=== PATIENT | male | born 2000 | race Two or more races ===

== ENCOUNTER 2025-03-12 11:30 | Outpatient (RCR) | payer MEDICAID, SELFPAY ==
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
--- NOTE | 2025-02-25 12:16 | PT.ODAYNRPT ---
PT Outpatient Daily Note OP Daily Note Outpatient Physical Therapy Treatment Date: 02/25/25 Visit Reasons: RT ANKLE FX Subjective: Arrives with crutches and boot Objective: See F/S for therex MT: STM posterior ankle and Achilles x5' Assessment: Decreased WB tolerance of R ankle while using 1 crutch Plan: Continue per POC Length of Time (minutes) of Treatment: 30 Minutes Procedure Charges Therapeutic Exercise 30 minutes: Yes
--- NOTE | 2025-03-03 16:15 | PT.ODAYNRPT ---
PT Outpatient Daily Note OP Daily Note Outpatient Physical Therapy Treatment Date: 03/03/25 Visit Reasons: RT ANKLE FX Subjective: Arrives with cane and no boot Objective: See F/S for therex Assessment: Improved WB tolerance of R ankle without the boot but he relies on hand support for balance Plan: Continue per POC Length of Time (minutes) of Treatment: 30 Minutes Procedure Charges Therapeutic Exercise 30 minutes: Yes
--- NOTE | 2025-03-05 12:02 | PT.ODAYNRPT ---
PT Outpatient Daily Note OP Daily Note Outpatient Physical Therapy Treatment Date: 03/05/25 Visit Reasons: RT ANKLE FX Subjective: Arrives with cane and no boot and says he's walking further Objective: See F/S for therex Assessment: Improved WB tolerance of R ankle without the boot and cane Plan: Continue per POC Length of Time (minutes) of Treatment: 30 Minutes Procedure Charges Therapeutic Exercise 30 minutes: Yes
--- NOTE | 2025-03-10 12:58 | PT.ODAYNRPT ---
PT Outpatient Daily Note OP Daily Note Outpatient Physical Therapy Treatment Date: 03/10/25 Visit Reasons: RT ANKLE FX Subjective: Arrives with cane and reports better ROM of ankle Objective: See F/S for therex Assessment: Improved WB tolerance of R ankle and low pain with heel raises Plan: Continue per POC Length of Time (minutes) of Treatment: 30 Minutes Procedure Charges Therapeutic Exercise 30 minutes: Yes
--- NOTE | 2025-03-12 13:07 | PT.ODAYNRPT ---
PT Outpatient Daily Note OP Daily Note Outpatient Physical Therapy Treatment Date: 03/12/25 Visit Reasons: RT ANKLE FX Subjective: Arrives with single point cane and states he has noticed improvement with Rt ankle ROM Objective: See F/S for therex Assessment: Pt tolerated exercises well with no increase in pain, requiring two breaks with gastroc stretch as he states it feels really tight. Improved WB tolerance with lateral steps. Plan: Continue with POC Length of Time (minutes) of Treatment: 30 Minutes Procedure Charges Therapeutic Exercise 30 minutes: Yes
== END 2025-03-15 23:59 | disposition home or self-care (01) ==
LOC: CPTX 11:30
PROVIDERS: PCP Orthopaedic Surgery; Referring Provider Orthopaedic Surgery; Visit Provider Orthopaedic Surgery
DX: R53.1 Weakness (principal); S82.241D Displaced spiral fracture of shaft of right tibia, subsequent encounter for closed fracture with routine healing; V00-Y99 External causes of morbidity
CPT/HCPCS: 97110; 97162

== ENCOUNTER 2025-04-14 14:00 | Outpatient (RCR) | payer MEDICAID, SELFPAY ==
--- NOTE | 2025-03-19 15:06 | PT.ODAYNRPT ---
PT Outpatient Daily Note OP Daily Note Outpatient Physical Therapy Treatment Date: 03/19/25 Subjective: Pt reports ankle pain but notices that flexibility is improving. Objective: Please see flow sheet for ther ex list. Assessment: Pt familiar with interventions resulting in good technique with exercises. Plan: Continue with poC. Length of Time (minutes) of Treatment: 30 Minutes Procedure Charges Therapeutic Exercise 30 minutes: Yes
--- NOTE | 2025-03-24 14:42 | PTNOTE_ITS ---
PT Outpatient Daily Note OP Daily Note Outpatient Physical Therapy Treatment Date: 03/24/25 Subjective: Pt reports of stiffness to Rt ankle and states he is noticing an improvement in ROM. Objective: See F/S for therex Assessment: Performed therex well with no reports of pain to Rt ankle. Progressed to lateral steps with light resistance; minimal verbal cues required to correct form. Conf irms he is compliant with HEP. Plan: Continue with POC Length of Time (minutes) of Treatment: 30 Minutes Procedure Charges Therapeutic Exercise 30 minutes: Yes
--- NOTE | 2025-03-26 14:31 | PT.ODAYNRPT ---
PT Outpatient Daily Note OP Daily Note Outpatient Physical Therapy Treatment Date: 03/26/25 Subjective: Pt reports ankle is swollen today, has been doing more walking than usual. Objective: Please see flow sheet for ther ex list. Assessment: Pt presents with R LE swelling and redness but cool to touch. Pt is really motivated, cue to avoid excessive force with ankle stretches, pt complied. Plan: Continue with pOC. Length of Time (minutes) of Treatment: 30 Minutes Procedure Charges Therapeutic Exercise 30 minutes: Yes
--- NOTE | 2025-03-31 13:08 | PT.ODAYNRPT ---
PT Outpatient Daily Note OP Daily Note Outpatient Physical Therapy Treatment Date: 03/31/25 Subjective: Pt reports ankle is feeling better today compared to last visit, ankle is less swollen today. Objective: Please see flow sheet for ther ex list. Assessment: Added light resistance to ankle 4 way exercises, pt completed with soreness said he would apply cold pack at home. Plan: Continue with poC. Length of Time (minutes) of Treatment: 30 Minutes Procedure Charges Therapeutic Exercise 30 minutes: Yes
--- NOTE | 2025-04-02 14:11 | PT.ODAYNRPT ---
PT Outpatient Daily Note OP Daily Note Outpatient Physical Therapy Treatment Date: 04/02/25 Subjective: No complaints and is no longer walking with SPC. Objective: See F/S for therex performed Assessment: Add step ups and lateral step ups; demo'd good mechanics and control with no increase in pain to Rt ankle. Post session, pt reports soreness to R LE and states he will apply ice pack at home as needed. Plan: Continue with POC. Length of Time (minutes) of Treatment: 30 Minutes Procedure Charges Therapeutic Exercise 30 minutes: Yes
--- NOTE | 2025-04-09 14:27 | PT.ODAYNRPT ---
PT Outpatient Daily Note OP Daily Note Outpatient Physical Therapy Treatment Date: 04/09/25 Subjective: Pt reports no changes to Rt ankle, c/o minimal pain Objective: See F/S for therex performed Assessment: Performs therex well with no increase in pain; no corrective cues required with exercises. C/o increased soreness to Rt ankle post session. Plan: Continue with POC Length of Time (minutes) of Treatment: 30 Minutes Procedure Charges Therapeutic Exercise 30 minutes: Yes
--- NOTE | 2025-04-14 14:35 | PT.ODAYNRPT ---
PT Outpatient Daily Note OP Daily Note Outpatient Physical Therapy Treatment Date: 04/14/25 Subjective: Pt reports he is doing well, minimal pain to anterior distal ankle. Objective: See F/S for therex performed Assessment: Progressed to red theraband with 4-way ankle exercise; maintain good mechanics/control with no corrective cues required. Plan: Continue with POC Length of Time (minutes) of Treatment: 30 Minutes Procedure Charges Therapeutic Exercise 30 minutes: Yes
== END 2025-04-14 23:59 | disposition home or self-care (01) ==
LOC: CPTX 14:00
PROVIDERS: PCP Orthopaedic Surgery; Referring Provider Orthopaedic Surgery; Visit Provider Orthopaedic Surgery
DX: R53.1 Weakness (principal); S82.241D Displaced spiral fracture of shaft of right tibia, subsequent encounter for closed fracture with routine healing; V09.9XXD Pedestrian injured in unspecified transport accident, subsequent encounter
CPT/HCPCS: 97110

== ENCOUNTER 2025-04-21 13:30 | Outpatient (RCR) | payer MEDICAID, SELFPAY ==
--- NOTE | 2025-04-16 13:53 | PT.ODS1RPT ---
PT OP Progress/Discharge Note Date of Service: 04/16/25 Progress Note/DC Note Progress Note/Discharge Note: Progress Note Patient Information Visit Reasons: knee surgery Service Continue Service or Discharge: Continue Service Status Subjective: Less pain in ankle and he is walking further Objective: See F/S for therex R ankle AROM: DF: 11 deg PF: 60 deg TTP: none of incision scars Gait: decreased stance time on R ankle Assessment: Pt has attended the eval and Rx sessions with good progress with therapy [place]. He is ambulating without assistive device with less pain x limited community distances and hasn't met goal of community distances. He can heel raise x10 without R ankle pain to meet that goal. He would benefit from continuing therapy to 24 visits to improve gait pattern and distance. Plan: We will need a signature on this progress note to extend POC to 24 visits and continue past 16 visits. Procedure Charges Therapeutic Exercise 30 minutes: Yes
--- NOTE | 2025-04-21 14:22 | PT.ODAYNRPT ---
PT Outpatient Daily Note OP Daily Note Outpatient Physical Therapy Treatment Date: 04/21/25 Visit Reasons: knee surgery Subjective: Pt reports he is doing well, minimal pain to anterior distal ankle. Objective: See F/S for therex performed Assessment: Improved strength with heel raises and squats with less tissue irritability of ankle Plan: Continue with POC Length of Time (minutes) of Treatment: 30 Minutes Procedure Charges Therapeutic Exercise 30 minutes: Yes
--- NOTE | 2025-06-02 10:41 | PT.ODS1RPT ---
PT OP Progress/Discharge Note Date of Service: 06/02/25 Progress Note/DC Note Progress Note/Discharge Note: DC Note Patient Information Visit Reasons: knee surgery Service Continue Service or Discharge: Discharge Discharge Date: 06/02/25 Status Assessment: Pt attended the initial evaluation and 14/16 Rx visits and no showed his last visit and never returned or called to schedule a follow-up appointment within the past 30 days, which is not in compliance with attendance policy. Pt?s attendance is not consistent enough to make progress with goals. Thank you for your referrals. Plan: D/C
== END 2025-05-15 23:59 | disposition home or self-care (01) ==
LOC: CPTX 13:30
PROVIDERS: PCP Orthopaedic Surgery; Referring Provider Orthopaedic Surgery; Visit Provider Orthopaedic Surgery
DX: R53.1 Weakness (principal); S82.244D Nondisplaced spiral fracture of shaft of right tibia, subsequent encounter for closed fracture with routine healing; V00-Y99 External causes of morbidity
CPT/HCPCS: 97110